=== PATIENT | male | born 1975 ===

== ENCOUNTER 2019-08-27 02:06 | Inpatient (IN) ==
[2019-08-27 02:51] LABS: #Basophils 0.1 thou/uL (0.0-0.2); #Eosinphils 0.2 thou/uL (0.0-0.7); #Lymphocytes 2.1 thou/uL (1.20-3.40); #Monocytes 0.5 thou/uL (0.11-0.59); #Neutrophils 3.2 thou/uL (1.40-6.50); %Eosinophils 2.7 % (0.0-10.0); %Lymphocytes 34.3 % (21.0-51.0); Hemoglobin 14.1 g/dL (14.0-18.0); Mean Corpuscular HGB CONC 33.5 g/dL (32.0-36.0); Mean Corpuscular Hemoglobin 29.5 pg (27.0-31.0); Mean Corpuscular Volume 88.2 fL (78.0-98.0); Mean Platelet Volume 8.3 fL (7.4-10.4); Platelet Count 205 thou/uL (130-400); RBC Distribution Width 14.7 % (11.5-14.5); Red Blood Cell (RBC) Count 4.79 mill/uL (4.70-6.10)
[2019-08-27 03:12] LABS: ALT (SGPT) 13 U/L (8-55); AST (SGOT) 13 U/L (5-34); Albumin 4.3 g/dL (3.5-5.0); Alkaline Phosphatase 90 U/L (40-110); Anion Gap 14 mmol/L (10-20); BUN (Urea Nitrogen) 16 mg/dL (8.9-20.6); Bilirubin, Total 0.9 mg/dL (0.2-1.2); CK (CPK) 112 U/L (30-200); Calc. Creatinine Clearance 0 mL/min (70-130); Calcium 9.3 mg/dL (7.8-10.44); Carbon Dioxide 22 mmol/L (22-29); Chloride 109 mmol/L (98-107); Estimated GFR-MDRD 83; Globulin 3.1 g/dL (2.4-3.5); Glucose 124 mg/dL (70-105); Protein, Total 7.4 g/dL (6.0-8.3); Sodium 141 mmol/L (136-145)
[2019-08-27 03:34] LABS: CKMB 1.4 ng/mL (0-6.6)
[2019-08-27] MEDS ORDERED: Aspirin Chewable 81 MG TAB ONE ×2 (03:52→03:53)
[2019-08-27] MEDS ORDERED: Enoxaparin Sodium 30 MG/0.3 ML SYRINGE ONE ×2 (06:21→06:22)
[2019-08-27] MEDS ORDERED: Enoxaparin Sodium 100 MG/ML SYRINGE ONE (06:21)
--- NOTE | 2019-08-27 08:10 | CT ---
PRELIMINARY REPORT/[facility]/AFTER HOURS PROCEDURE PROCEDURE INFORMATION: Exam: CT Angiography Chest With Contrast Exam date and time: 08/27/2019 4:22 AM Clinical history: 44 years old, male; Abdominal pain; Generalized; Patient HX: 44 year old male prese nts to ED C/O constant midsternal chest pain that radiates to the back. Reports episode started at 0100 while he was laying in bed, reports associated symptoms of shortness or breath and dizziness/lightheadedness. Reports cardiac history, patient reports has had 7 stents placed, the last 3 were last month. 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 Beebe is located there TECHNIQUE: Imaging protocol: Computed tomographic angiography of the chest with intravenous contrast. 3D rendering: MIP reconstructed images were created and reviewed. COMPARISON: No relevant prior studies available. FINDINGS: Pulmonary arteries: No pulmonary emboli. Aorta: No aortic aneurysm. No aortic dissection. Lungs: Unremarkable. No consolidation. No masses. Pleural space: Triangular subpleural 6 mm nodule is suggestive of a lymph node. No pneumothorax. No pleural effusion. Heart: Cardiomegaly predominately involves the right cardiac chambers. Coronary arteries calcifications are severe. No pericardial effusion. Lymph nodes: No enlarged lymph nodes. Bones/joints: No acute fracture. Soft tissues: Unremarkable. IMPRESSION: No acute findings. PROCEDURE INFORMATION: Exam: CT Angiography Abdomen With Contrast Exam date and time: 08/27/2019 4:22 AM Clinical history: 44 years old, male; Abdominal pain; Generalized; Patient HX: 44 year old male prese nts to ED C/O constant midsternal chest pain that radiates to the back. Reports episode started at 0100 while he was laying in bed, reports associated symptoms of shortness or breath and dizziness/lightheadedness. Reports cardiac history, patient reports has had 7 stents placed, the last 3 were last month. 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 Beebe is located there TECHNIQUE: Imaging protocol: Computed tomographic angiography images of the abdomen with intravenous contrast material. 3D rendering: MIP reconstructed images were created and reviewed. COMPARISON: No relevant prior studies available. FINDINGS: VASCULATURE: Aorta: No aortic aneurysm. No aortic dissection. Celiac trunk and mesenteric arteries: No occlusion or significant stenosis. Renal arteries: No occlusion or significant stenosis. ABDOMEN: Liver: Normal. No mass. Gallbladder and bile ducts: No calcified stones. No ductal dilation. Pancreas: Normal. No ductal dilation. Spleen: No splenomegaly. Adrenals: No mass. Kidneys and ureters: Normal. No hydronephrosis. Stomach and bowel: No obstruction. No mucosal thickening. Intraperitoneal space: No free air. No significant fluid collection. Bones/joints: Unremarkable. No acute fracture. No dislocation. Soft tissues: Unremarkable. Lymph nodes: No enlarged lymph nodes. IMPRESSION: No aortic aneurysm. No aortic dissection. Thank you for allowing us to participate in the care of your patient. Dictated and Authenticated by: Paty Jose MD 08/27/2019 5:35 AM Central Time ([place] & [place]) FINAL REPORT CT ARTERIOGRAM CHEST WITH IV CONTRAST AND 3D IMAGING PERFORMED ON AN EMERGENCY BASIS: CT ARTERIOGRAM ABDOMEN AND PELVIS WITH IV CONTRAST AND 3D IMAGING PERFORMED ON AN EMERGENCY BASIS: 08/27/2019 0423 HOURS HISTORY: Chest and abdomen pain with radiation to the back. FINDINGS: I agree with the preliminary report by Dr. Marcelino from [facility]. No evidence of aortic dissection or leak. Normal caliber with good flow. Tiny nonspecific foci of bilateral pleural nodularity apparent. CODE QA Transcribed Date/Time: 08/27/2019 10:18 AM
[2019-08-27 08:28] VITALS: BP 124/88; TEMP 97.1; BMI 36.9
--- NOTE | 2019-08-27 09:03 | RAD ---
Chest one view HISTORY: Chest pain. FINDINGS: No comparison. Cardiac silhouette is magnified by projection. Pulmonary vasculature is unre markable. Mediastinum is midline with a single lead left subclavian cardiac electronic device. No lobar consolidation or evidence of pneumothorax. IMPRESSION: No active cardiopulmonary abnormalities are demonstrated.
[2019-08-27] MEDS ORDERED: HYDROcodone/Acetaminophen 5/325 mg Tablet PO PRN ×2 (09:51)
[2019-08-27] MEDS ORDERED: Ondansetron PF 4 MG/2 ML Vial IVP PRN (09:51)
[2019-08-27] MEDS ORDERED: Ondansetron ODT 4 MG TAB SL PRN (09:51)
[2019-08-27] MEDS ORDERED: Acetaminophen 325 MG TAB PO PRN (09:51)
--- NOTE | 2019-08-27 22:24 | PDOC.HHP ---
Hospitalist HPI - History of Present Illness chest pain Hospitalist Results - Labs Result Diagrams: 08/27/19 02:41 08/27/19 02:13 Lab results: WBC 6.0 thou/uL (4.8-10.8) 08/27/19 02:41 Hgb 14.1 g/dL (14.0-18.0) 08/27/19 02:41 Hct 42.3 % (42.0-52.0) 08/27/19 02:41 MCV 88.2 fL (78.0-98.0) 08/27/19 02:41 Plt Count 205 thou/uL (130-400) 08/27/19 02:41 Neutrophils % 54.0 % (42.0-75.0) 08/27/19 02:41 Sodium 141 mmol/L (136-145) 08/27/19 02:13 Potassium 4.0 mmol/L (3.5-5.1) 08/27/19 02:13 Chloride 109 mmol/L (98-107) H 08/27/19 02:13 Carbon Dioxide 22 mmol/L (22-29) 08/27/19 02:13 BUN 16 mg/dL (8.9-20.6) 08/27/19 02:13 Creatinine 0.97 mg/dL (0.7-1.3) 08/27/19 02:13 Glucose 124 mg/dL (70-105) H 08/27/19 02:13 Calcium 9.3 mg/dL (7.8-10.44) 08/27/19 02:13 Total Bilirubin 0.9 mg/dL (0.2-1.2) 08/27/19 02:13 AST 13 U/L (5-34) 08/27/19 02:13 ALT 13 U/L (8-55) 08/27/19 02:13 Alkaline Phosphatase 90 U/L (40-110) 08/27/19 02:13 Creatine Kinase 112 U/L (30-200) 08/27/19 02:13 CK-MB (CK-2) 1.4 ng/mL (0-6.6) 08/27/19 02:41 Troponin I 0.150 ng/mL (< 0.028) H 08/27/19 05:58 B-Natriuretic Peptide 311.0 pg/mL (0-100) H 08/27/19 02:41 Serum Total Protein 7.4 g/dL (6.0-8.3) 08/27/19 02:13 Albumin 4.3 g/dL (3.5-5.0) 08/27/19 02:13
--- NOTE | 2019-08-30 21:16 | SS ---
DATE OF ADMISSION: 08/27/2019 DATE OF DISCHARGE: 08/27/2019 CHIEF COMPLAINT: Chest pain. HISTORY OF PRESENT ILLNESS: This is a 44-year-old male with past medical history of CAD status post 7 cardiac stents, AICD and LVAD, who presented to the hospital with chest pain. The patient reported that his chest pain had started at 1:00 a.m. while he was sleeping in his bed. He stated it was sharp and radiating to his back. He denied any dizziness, lightheadedness, diaphoresis, shortness of breath, cough, fever, or chills. 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 The patient states he had a 100% occlusion of his right coronary artery in the past, and had 7 stents placed. He was recently informed that he needed to have more stents placed by his adobe ball mixer in [place]. The patient presented to the ED for further evaluation. The patient states that he received aspirin in the ambulance, but did not notice a difference in his pain. He did not receive any nitroglycerin. He reports that walking exacerbates his chest pain. REVIEW OF SYSTEMS: CONSTITUTIONAL: Negative for fevers, chills, night sweats, or weight loss. EYES: Denies any blurred vision or redness. ENT: Denies any ear pain or hearing loss. CARDIOVASCULAR: Positive for chest pain. Negative for diaphoresis. RESPIRATORY: Negative for cough or hemoptysis. GI: Negative for abdominal pain, constipation, or diarrhea. GENITOURINARY: Negative for dysuria or hematuria. MUSCULOSKELETAL: Negative for back pain, trauma, or injury. SKIN: Negative for any skin rashes or changes. NEUROLOGIC: Negative for weakness or numbness in his arms or legs, headaches, or vision changes. HEMATOLOGIC: Negative for easy bruising or Bleeding. PAST MEDICAL HISTORY: Coronary artery disease with 7 cardiac stents, gout, hyperlipidemia, hypertension, diabetes. PAST SURGICAL HISTORY: Cardiac cath status post PCI, knee replacement, AICD, LVAD. SOCIAL HISTORY: The patient denies any alcohol use or illicit drug use. No smoking. FAMILY HISTORY: The patient reports history of cancer on maternal side of the family and history of stroke on father side of the family. ALLERGIES: BRILINTA, HEPARIN. SPECIFIC ALLERGY UNKNOWN. CURRENT MEDICATIONS: 1. Nitroglycerin 0.4 mg sublingual q.5 minutes p.r.n. 2. Allopurinol 100 mg p.o. daily. 3. Amlodipine 10 mg p.o. q.p.m. 4. Aspirin 81 mg p.o. daily. 5. Atorvastatin 20 mg p.o. at bedtime. 6. Imdur 120 mg p.o. daily, Imdur 60 mg q.p.m. 7. Lisinopril 20 mg p.o. b.i.d. 8. Metformin 500 mg p.o. q.p.m. 9. Metoprolol succinate 100 mg p.o. b.i.d. 10. Prasugrel 10 mg p.o. daily. 11. Ranexa 500 mg p.o. b.i.d. 12. Ranolazine 500 mg p.o. b.i.d. PHYSICAL EXAMINATION: VITAL SIGNS: Blood pressure on initial presentation was 135/91, pulse 66, respirations 17, temperature 98.8, O2 saturations 97% on room air. CONSTITUTIONAL: Alert, awake, oriented x3. EYES: PERRLA, extraocular muscles intact. EARS: Normal tympanic membrane. No erythema. THROAT: No enlarged tonsils or oropharyngeal erythema. CVS: Regular rate and rhythm. No murmurs, no rubs, no gallops. LUNGS: Clear to auscultation bilaterally. Normal respiratory rate. ABDOMEN: Positive bowel sounds. Soft, nontender, nondistended. EXTREMITIES: 2+ radial pulses. No edema. GAIT: The patient was ambulatory. SKIN: No rashes. PSYCHIATRIC: No signs of anxiety or depression. LABORATORY DATA: White blood cell count 6.0, hemoglobin 14.1, hematocrit 42.3, platelet count 205. BMP; sodium 145, potassium 4.0, chloride 109, carbon dioxide 22, BUN 16, creatinine 0.97, glucose 124, calcium 9.3. Total bilirubin 0.9, AST 13, ALT 13, alkaline phosphatase 90, CK 112. Troponin I was elevated at 0.165, second troponin was 0.150. BNP elevated at 311. Albumin 4.3. IMAGING STUDIES: Chest x-ray: no active cardiopulmonary abnormalities. CT angio with contrast : pulmonary emboli and no aortic dissection. There was a 6 mm subpleural nodule suggestive of lymph nodes. Cardiomegaly involving the right cardiac chamber. There was no aortic aneurysm or dissection in his aorta, celiac trunk, mesenteric arteries, or renal arteries in his abdomen. Refer to full report for further details. ASSESSMENT AND PLAN/HOSPITAL COURSE: 1. Chest pain: - The patient reports chest pain radiating to his back. His CTA and chest x-ray showed no evidence of pneumonia, aortic dissection, or PE. However , his troponins were elevated with the first one being 0.165. Second troponin came down to 0.150. The patient was initially admitted for observation for trending of his enzymes. However, after the patient came up on the floor, the patient decided that he did not want any further testing. He stated that he did not want a stress test because he had one 2 months ago that was abnormal and showed microvascular changes. He also did not want a cardiac catheterization because he stated he had many and he was afraid that he would not qualify for disability if he had another one too soon. The patient reported that he wanted to follow up with his adobe ball mixer in [place] and leave [place]. He is planning on moving to [place] and will call an outpatient adobe ball mixer here for an appointment. The patient agreed to sign an AMA form and agreed to the risks of heart attack or upon leaving. 2. Gout: Continue allopurinol. 3. Hypertension: Continue amlodipine, Imdur, Lisinopril, metoprolol. 4. Coronary artery disease: Continue ranolazine, prasugrel, aspirin, nitroglycerin p.r.n., atorvastatin. 5. Type 2 diabetes" Continue metformin. CONDITION ON DISCHARGE: Stable, alert and oriented x3. CODE STATUS: Full code. DISCHARGE MEDICATIONS: Refer to home medication list on admission since the medications are the same same. Job ID: [id number] [facility]
--- NOTE | 2019-09-03 15:03 | EKG ---
Test Reason : Blood Pressure : / mmHG Vent. Rate : 064 BPM Atrial Rate : 064 BPM P-R Int : 144 ms QRS Dur : 094 ms QT Int : 442 ms P-R-T Axes : 024 005 -15 degrees QTc Int : 455 ms Normal sinus rhythm Inferior infarct , age undetermined T wave abnormality, consider anterior ischemia Abnormal ECG T wave inversion V3-V6 Confirmed by JOSE DIAZ DO ([id number]), market editor HARDIK KERR ([id number]) on 09/03/2019 3:03:17 PM Referred By: Confirmed By:JOSE DIAZ DO
== END 2019-08-27 15:20 | disposition left against medical advice (07) | DRG 313 ==
LOC: ERS 02:06 → 2NO 05:44
PROVIDERS: ADMIT Internal Medicine; ATTEND Internal Medicine
DX: R07.9 Chest pain, unspecified (principal); R79.89 Other specified abnormal findings of blood chemistry; I25.10 Atherosclerotic heart disease of native coronary artery without angina pectoris; M10.9 Gout, unspecified; E78.5 Hyperlipidemia, unspecified; I10 Essential (primary) hypertension; E11.9 Type 2 diabetes mellitus without complications; Z79.899 Other long term (current) drug therapy; Z79.84 Long term (current) use of oral hypoglycemic drugs; Z82.3 Family history of stroke; Z80.9 Family history of malignant neoplasm, unspecified; Z88.8 Allergy status to other drugs, medicaments and biological substances
CPT/HCPCS: 36415; 71045; 71275; 72191; 74175; 80053; 82550; 82553; 83880; 84484; 85025; 93005; 96372; J1650